=== PATIENT | female | born 1965 | race African-American/Black ===

== ENCOUNTER 2016-06-29 21:55 | Emergency (ER) | payer OTHER ==
[~2016-06-29] VITALS: Ht 165.1 cm; Wt 100.0 kg
[~2016-06-29 21:55] MED LIST: NOCURR
[2016-06-29 22:08] VITALS: BP 152/90
[2016-06-30 00:08] LABS: APPEARANCE,URINE CLEAR (CLEAR); GLUCOSE, URINE (UA) NEGATIVE (NEGATIVE); KETONES,URINE NEGATIVE (NEGATIVE); LEUKOCYTE ESTERASE ,URINE NEGATIVE (NEGATIVE); OCCULT BLOOD,URINE SMALL (NEGATIVE); PH,URINE 5.5 (5.0-8.0); PROTEIN,URINE TRACE (NEGATIVE)
[2016-06-30 00:38] LABS: SQUAMOUS EPITHELIAL CELL,UR Rare /LPF (None Seen); WBC,URINE 0-2 /HPF (0-5)
== END 2016-06-30 00:18 | disposition left against medical advice (07) ==
LOC: EMS 21:56
DX: M54.5 Low back pain (principal); H92.03 Otalgia, bilateral; Z53.21 Procedure and treatment not carried out due to patient leaving prior to being seen by health care provider

== ENCOUNTER → 2021-01-04 | Emergency (ER) | payer OTHER ==
[~2021-01-04] VITALS: Ht 157.5 cm; Wt 68.2 kg
[~2021-01-04] MED LIST changes: +FLUORESCEIN SODIUM 1 MG STRIP ONE; +GENTAMICIN SULFATE 0.3% OPHTHALMIC SOLUTION 5 ML OD ONE
[2021-01-04 10:49] VITALS: BP 162/80
== END | disposition home or self-care (01) ==
LOC: EMS 10:09
DX: H10.31 Unspecified acute conjunctivitis, right eye (principal); E78.00 Pure hypercholesterolemia, unspecified
CPT/HCPCS: 99283

== ENCOUNTER 2021-08-14 11:19 | Emergency (ER) | payer OTHER ==
[~2021-08-14] VITALS: Ht 157.5 cm; Wt 77.3 kg
[~2021-08-14 11:19] MED LIST changes: -FLUORESCEIN SODIUM 1 MG STRIP ONE; -GENTAMICIN SULFATE 0.3% OPHTHALMIC SOLUTION 5 ML OD ONE
[2021-08-14 13:53] VITALS: BP 133/77
[2021-08-14] MEDS ORDERED: MECL-134 PO (14:11)
== END 2021-08-14 14:25 | disposition home or self-care (01) ==
LOC: EMS 11:19
DX: R42 Dizziness and giddiness (principal); Z98.890 Other specified postprocedural states
CPT/HCPCS: 99282; Z7502

== ENCOUNTER 2023-01-03 08:48 | Emergency (ER) | payer OTHER ==
[~2023-01-03] VITALS: Ht 157.5 cm; Wt 81.8 kg
[~2023-01-03 08:48] MED LIST changes: +MECL-134 PO
[2023-01-03] MEDS ORDERED: IBUPROFEN 600 MG TABLET PO ONE (09:15)
[2023-01-03 10:10] VITALS: BP 140/63; PULSE 76; RESP 17; TEMP 98.3
[2023-01-03] MEDS ORDERED: IBUP-1492 PO (10:12)
== END 2023-01-03 10:26 | disposition home or self-care (01) ==
LOC: EMS 08:52
DX: S89.92XA Unspecified injury of left lower leg, initial encounter (principal); R59.1 Generalized enlarged lymph nodes; E78.00 Pure hypercholesterolemia, unspecified; Z98.890 Other specified postprocedural states; W19.XXXA Unspecified fall, initial encounter; Y93.89 Activity, other specified; Y92.89 Other specified places as the place of occurrence of the external cause; Y99.8 Other external cause status
CPT/HCPCS: 99283